=== PATIENT | male | born 1995 | race Hispanic/Latino ===

== ENCOUNTER 2019-07-31 07:44 | Emergency (ER) | payer OTHER, MEDICAID, SELFPAY ==
[2019-07-31 08:00] VITALS: BP 100/70; PULSE 80; RESP 16; TEMP 36.5; O2SAT 97; BMI 43.2
--- NOTE | 2019-07-31 08:03 | ED_ITS ---
HPI - Extremity Injury (Upper) General Chief Complaint: Extremity Injury, Upper Stated Complaint: right hand injury Time Seen by Provider: 07/31/19 08:03 Source: patient Mode of arrival: Ambulatory Limitations: no limitations History of Present Illness HPI narrative: This is a 23-year-old male who states yesterday he was using a shovel and is holding it upright and sort of stabbing at the ground to break up some dirt. He states he was doing this for a period of time and the dirt was very hard. Patient states he started to develop pain in his right hand extending from the base of the fingers through his palm about long-term up his forearm. This was afterwards. Patient states that flexing his hands or extending them seems to increase it a little. He denies any numbness or tingling today but felt a little bit of tingling in the 3rd 4th fingers yesterday. He does not have any bony tenderness. patient states that he went home, he did not really notice anything overnight but then today when he started using his hand to buckle his seatbelt or do anything physical he would notice it particularly into the forearm. The palm. Patient does work, he states he does a lot of work with his hands so he feels like it would be difficult to work today. He denies any other medical issues, he has had surgery on his left elbow but not his right side. He does smoke, occasional alcohol, does use marijuana. Related Data Allergies Allergy/AdvReac Type Severity Reaction Status Date / Time No Known Drug Allergies Allergy Verified 07/31/19 08:09 Review of Systems Review of Systems ROS Unobtainable: All systems reviewed & are unremarkable except as noted in HPI and below Patient History Social History Smoking Status: Current every day smoker tobacco type: cigarettes alcohol intake frequency: a few times a week Substance Use Type: marijuana Exam Narrative Exam Narrative: GENERAL: Alert and oriented x three, obese, well-appearing male in mild distress. HEENT: Head normocephalic, atraumatic, EOMI, pupils reactive, face symmetric, moist mucous membranes NECK: Supple, full range of motion EXTREMITIES: Normal range of motion, no clubbing or edema. Neurovascularly intact. 2+ radial pulse. Cap refill less than 2 seconds in all 5 fingers. Patient has full range of motion with 5/5 muscle strength in his right upper extremity. No bony tenderness. Patient does not have any decrease in sensation or change between all 5 fingers or his hand or forearm. He has some mild discomfort in the volar side of the forearm with extension of the wrist. NEUROLOGICAL: Cranial nerves II through XII grossly intact. Moving all extremities SKIN: Warm, dry, no petechiae, no rashes or lesions. Initial Vital Signs Initial Vital Signs: Vital Signs Temperature 97.7 F 07/31/19 08:00 Pulse Rate 80 07/31/19 08:00 Respiratory Rate 16 07/31/19 08:00 Blood Pressure 100/70 07/31/19 08:00 Pulse Oximetry 97 07/31/19 08:00 Course Vital Signs Vital signs: Vital Signs - 8 hr 07/31/19 08:00 Temperature 97.7 F Pulse Rate 80 Respiratory Rate 16 Blood Pressure 100/70 Pulse Oximetry 97 MDM - Extremity Injury (Upper) MDM Narrative Medical decision making narrative: Discussed with patient I suspect that he has strained either a tendon/ligament or muscle. Particularly following the course and insertion where his pain is at. Patient I both discussed neither of us suspect fracture and he is comfortable deferring any imaging. Plan for Frank wrap to remind patient not to use his forearm. Ibuprofen/NSAIDs as needed and follow up with primary care if symptoms are not resolving. Discharge Plan Departure Patient Disposition: Home Clinical Impression: Sprain and strain of wrist Discharge Date/Time: 07/31/19 08:29 Instructions: DI for Wrist Sprain Activity Restrictions/Additional Instructions: Follow-up with primary care if your symptoms are not resolving in the next 10-14 days. You may take ibuprofen up to 600 mg every 6 hours as needed for pain, you may also take Tylenol up to a 1000 mg every 8 hours as needed for pain. Splint Care: Keep splint clean and dry. Elevated affected body part to decrease swelling. OK to use ice pack on the affected body part. Use for 15-20 minutes each time, for 5-6x per day. If you develop worsening pain, numbness, tingling, discoloration of the affected body part, loosen the splint by loosening the FRANK wrap, and either see your doctor for an urgent re-assessment, or return to the Emergency Department. Return to the Emergency Department for any new or worsening symptoms. Stand Alone Forms: Work Release Note
[2019-07-31 08:28] VITALS: BP 122/79; PULSE 86; RESP 16; O2SAT 97
== END 2019-07-31 08:29 | disposition home or self-care (01) ==
PROVIDERS: Emergency Provider Emergency Medicine
DX: S63.501A Unspecified sprain of right wrist, initial encounter (principal); S66.911A Strain of unspecified muscle, fascia and tendon at wrist and hand level, right hand, initial encounter
CPT/HCPCS: 99282

== ENCOUNTER 2019-08-13 18:40 | Emergency (ER) | payer OTHER, MEDICAID, SELFPAY ==
[2019-08-13 18:53] VITALS: BP 140/70; PULSE 101; RESP 16; TEMP 36.2; O2SAT 97; BMI 42.5
--- NOTE | 2019-08-13 19:08 | ED.ABDPAIN ---
HPI - Abdominal Pain General Chief Complaint: Abdominal Pain Stated Complaint: WEAK, SHAKEY, DIETARY ISSUES, DIARRHEA Time Seen by Provider: 08/13/19 18:46 Source: patient Mode of arrival: Ambulatory Limitations: no limitations History of Present Illness HPI narrative: Patient is a 23-year-old male who presents with nausea vomiting diarrhea ongoing for the past 2-3 days. He has felt nauseous today but actually has not thrown up he has had a few episodes of diarrhea as well. He has noted some blood on the toilet paper but not the toilet bowl. Here some diffuse abdominal cramping. No dizziness or lightheadedness no fevers sweats or chills. MD complaint: abdominal pain Onset (ago): day(s) Pain Consistency: intermittent Location: diffuse Severity: mild Quality: cramping Radiation: none Migration to: no migration Relieving factors: nothing Exacerbating factors: nothing Related Data Previous Rx's Medication Instructions Recorded ondansetron 4 mg PO Q8H PRN #10 tab 08/13/19 Allergies Allergy/AdvReac Type Severity Reaction Status Date / Time No Known Drug Allergies Allergy Verified 07/31/19 08:09 Review of Systems Review of Systems Narrative: GENERAL: Denies chills, fatigue, malaise, fever, sweats, travel HEENT: Denies sinus pain, ear pain, sore throat, difficulty swallowing, neck pain RESPIRATORY: Denies dyspnea, cough, wheezing, hemoptysis, sputum. CARDIOVASCULAR: Denies chest pain, palpitations, orthopnea, edema GASTROINTESTINAL: See HPI : Denies dysuria, frequency, incontinence, hematuria, urinary retention, flank pain. MUSCULOSKELETAL: Denies weakness, joint pain, or bony pain SKIN: No rash, no erythema, no pruritus NEUROLOGIC: Denies weakness, dizziness, headache, numbness, change in speech, confusion PSYCHIATRIC: No concerning psychosocial issues. 12 point review of systems is negative except for those stated above and HPI Patient History Medical History Patient denies medical problems (Acute) Social History Smoking Status: Current every day smoker tobacco type: cigarettes alcohol intake frequency: a few times a week Substance Use Type: marijuana Exam Initial Vital Signs Initial Vital Signs: Vital Signs Temperature 97.1 F L 08/13/19 18:53 Pulse Rate 101 H 08/13/19 18:53 Respiratory Rate 16 08/13/19 18:53 Blood Pressure 140/70 08/13/19 18:53 Pulse Oximetry 97 08/13/19 18:53 GENERAL: Overweight male and in no acute distress. HEENT: Head atraumatic,EOMI, pupils reactive, face symmetric, CARDIOVASCULAR: Regular rate and rhythm without murmurs, rubs or gallops. RESPIRATORY: Breath sounds equal bilaterally, no wheezes rales or rhonchi. ABDOMEN: Soft, overweight no localization is nontender no guarding no rebound EXTREMITIES: Normal range of motion, no clubbing or edema. Neurovascularly intact NEUROLOGICAL: Alert and oriented x4.Normal gait and speech. Cranial nerves II through XII grossly intact. SKIN: Warm, dry, no laceration, no petechiae, no rashes or lesions. Course Orders Ordered: ED Orders 08/13/19 19:43 Complete Blood Count AUTO DIFF Stat Comprehensive Metabolic Panel Stat Lipase Stat Partial Thromboplastin Time Stat Prothrombin Time INR Stat Discontinued Medications Ondansetron HCl (Zofran) 4 mg IV NOW ONE Stop: 08/13/19 19:15 Last Admin: 08/13/19 19:49 Dose: 4 mg Documented by: RIVKA Vital Signs Vital signs: Vital Signs - 8 hr 08/13/19 18:53 08/13/19 21:05 Temperature 97.1 F L Pulse Rate 101 H 84 Respiratory Rate 16 16 Blood Pressure 140/70 114/58 L Pulse Oximetry 97 97 MDM - Abdominal Pain Lab Data Attestation: I reviewed the patient's lab results. Result diagrams: 08/13/19 19:43 08/13/19 19:43 Labs: Lab Results 08/13/19 08/13/19 08/13/19 Range/Units 19:43 19:43 19:43 WBC 12.9 H (4.5-11.0) X10^3/uL RBC 5.46 (4.5-5.9) X10^6/uL Hgb 16.2 (13.5-17.5) g/dL Hct 47.3 (41-53) % MCV 86.6 (80-100) fL MCH 29.8 (26-34) PG MCHC 34.4 (30-36) % RDW 13.7 (11.6-14.8) % Plt Count 361 (150-400) X10^3/uL Neut % (Auto) 71.2 (50-75) % Lymph % (Auto) 20.7 L (25-40) % [place] % (Auto) 7.2 (3-14) % Eos % (Auto) 0.4 L (2-4) % Baso % (Auto) 0.5 (0-2) % Neut # (Auto) 9200 H (0556-9259) /uL Lymph # (Auto) 2700 (5851-4496) /uL [place] # (Auto) 900 (0-900) /uL Eos # (Auto) 0 (0-450) /uL Baso # (Auto) 100 (0-100) /uL PT 10.4 (10.1-12.7) SECONDS INR 0.9 (0.9-1.3) APTT 33 (26.4-36.2) SECONDS Sodium 138 (137-145) mmol/L Potassium 4.6 (3.4-5.1) mmol/L Chloride 101 (98-107) mmol/L Carbon Dioxide 27 (22-32) mmol/L BUN 12 (9-20) mg/dL Creatinine 0.70 (0.66-1.25) mg/dL Estimated GFR > 60.0 (>60) mL/min BUN/Creatinine Ratio 17.1 (6-22) Glucose 99 (70-100) mg/dL Calcium 9.2 (8.4-10.2) mg/dL Total Bilirubin 0.6 (0.2-1.3) mg/dL AST 58 (17-59) IU/L ALT 74 H (<50) IU/L Alkaline Phosphatase 111 (38-126) U/L Total Protein 8.1 (6.3-8.2) g/dL Albumin 4.5 (3.5-5.0) g/dL Globulin 3.6 (1.7-4.1) g/dL Albumin/Globulin Ratio 1.3 (1.0-2.8) Lipase 190 (23-300) U/L Point of care testing: Urine Dip Bedside Urine Glucose Negative Bedside Urine Bilirubin - Negative Bedside Urine Ketone - Negative Urine Specific [place] 1.015 Bedside Urine Occult Blood - Negative Bedside Urine pH 6.5 Bedside Urine Protein - Negative Bedside Urine Nitrite - Negative Bedside Urine Leukocytes - Negative Esterase MDM Narrative Medical decision making narrative: Mode tolerating oral fluids, abdomen soft no specific tenderness blood work overall reassuring. At this time no need for any imaging at this time. Discharge Plan Departure Patient Disposition: Home Clinical Impression: Gastroenteritis Discharge Date/Time: 08/13/19 21:05 Instructions: DI for Viral Gastroenteritis -- Adult Activity Restrictions/Additional Instructions: 1) You have been diagnosed with gastroenteritis 2) What to do: Drink frequent but small amounts of fluids. I recommend Gatorade or a Gatorade-like product, as it has small amounts of sugar and salts that improve fluid retention. 3) Take medications as directed Zofran 4 mg every 8 hours if needed for nausea or vomiting 4) Follow up with your primary care provider in 2-3 days 5) Return to ER if you should have any new or worsening symptoms such as, unable to hold down fluids despite use of anti-nausea medications and the small volume oral rehydration strategy. Prescriptions: New ondansetron 4 mg tablet,disintegrating 4 mg PO Q8H PRN (Reason: nausea and vomiting) Qty: 10 RF: 0 Stand Alone Forms: Work Release Note
[2019-08-13] MEDS: ONDANSETRON 4 MG/2 ML INJ IV (19:49)
[2019-08-13 19:52] LABS: Add Manual Diff / Slide Review NO; Basophils Absolute Auto 100 /uL (0-100); Basophils Percent Auto 0.5 % (0-2); Eosinophils Absolute Auto 0 /uL (0-450); Eosinophils Percent Auto 0.4 % (2-4); Hematocrit 47.3 % (41-53); Hemoglobin 16.2 g/dL (13.5-17.5); Lymphocytes Absolute Auto 2700 /uL (1100-4500); Lymphocytes Percent Auto 20.7 % (25-40); Mean Corpuscular HGB Conc 34.4 % (30-36); Mean Corpuscular Hemoglobin 29.8 PG (26-34); Mean Corpuscular Volume 86.6 fL (80-100); Monocytes Absolute Auto 900 /uL (0-900); Monocytes Percent Auto 7.2 % (3-14); Neutrophils Absolute Auto 9200 /uL (1500-7000); Neutrophils Percent Auto 71.2 % (50-75); Platelet Count 361 X10^3/uL (150-400); Red Blood Cell Count 5.46 X10^6/uL (4.5-5.9); Red Cell Distribution Width 13.7 % (11.6-14.8); White Blood Cell Count 12.9 X10^3/uL (4.5-11.0)
[2019-08-13 19:58] LABS: INR 0.9 (0.9-1.3); Prothrombin Time 10.4 SECONDS (10.1-12.7)
[2019-08-13 20:01] LABS: PTT Partial Thromboplastin Tim 33 SECONDS (26.4-36.2)
[2019-08-13 20:09] LABS: Alanine Aminotransferase 74 IU/L (<50); Albumin 4.5 g/dL (3.5-5.0); Albumin Globulin Ratio 1.3 (1.0-2.8); Alkaline Phosphatase 111 U/L (38-126); Aspartate Aminotransferase 58 IU/L (17-59); BUN Creatinine Ratio 17.1 (6-22); Bilirubin Total 0.6 mg/dL (0.2-1.3); Blood Urea Nitrogen 12 mg/dL (9-20); Calcium 9.2 mg/dL (8.4-10.2); Carbon Dioxide 27 mmol/L (22-32); Chloride 101 mmol/L (98-107); Estimated Glomerular Filt Rate > 60.0 mL/min (>60); Globulin 3.6 g/dL (1.7-4.1); Glucose 99 mg/dL (70-100); Lipase 190 U/L (23-300); Potassium 4.6 mmol/L (3.4-5.1); Sodium 138 mmol/L (137-145); Total Protein 8.1 g/dL (6.3-8.2)
[2019-08-13 20:11] LABS: HEMOLYSIS 128 (0-50)
[2019-08-13 21:05] VITALS: BP 114/58; PULSE 84; RESP 16; O2SAT 97
== END 2019-08-13 21:05 | disposition home or self-care (01) ==
PROVIDERS: Emergency Provider Emergency Medicine
DX: K52.9 Noninfective gastroenteritis and colitis, unspecified (principal)
CPT/HCPCS: 36415; 80053; 81003; 83690; 85025; 85610; 85730; 96374; 99282; 99284; J2405